=== PATIENT | female | born 1985 | race American Indian/Alaskan Native ===

== ENCOUNTER 2017-12-26 15:45 | Emergency (ER) | payer MEDICAID ==
[~2017-12-26] VITALS: Ht 162.6 cm; Wt 118.0 kg
[~2017-12-26 15:45] MED LIST: ALBU6.7H INH; AZIT250T PO; CLIN-79 PO; DIAZ2TAB PO; DIPH25CA83 PO; EFF25T PO; HYDR-565 PO; HYDR28CR14 TP; LORA-269 PO; PNV1TABL66 PO; RISP1TAB47 PO
[2017-12-26 15:58] VITALS: BP 126/64
== END 2017-12-26 17:18 | disposition home or self-care (01) ==
LOC: ER 15:45
DX: O98.812 Other maternal infectious and parasitic diseases complicating pregnancy, second trimester (principal); B37.3 Candidiasis of vulva and vagina; O26.892 Other specified pregnancy related conditions, second trimester; K21.9 Gastro-esophageal reflux disease without esophagitis; F32.9 Major depressive disorder, single episode, unspecified; F41.9 Anxiety disorder, unspecified; O99.512 Diseases of the respiratory system complicating pregnancy, second trimester; J45.909 Unspecified asthma, uncomplicated; O99.322 Drug use complicating pregnancy, second trimester; F12.10 Cannabis abuse, uncomplicated; O24.419 Gestational diabetes mellitus in pregnancy, unspecified control; Z3A.25 25 weeks gestation of pregnancy; Z79.899 Other long term (current) drug therapy; Z86.14 Personal history of Methicillin resistant Staphylococcus aureus infection
CPT/HCPCS: 99284

== ENCOUNTER 2018-01-03 02:02 | Emergency (ER) | payer MEDICAID ==
[~2018-01-03] VITALS: Ht 162.6 cm; Wt 121.0 kg
[2018-01-03 02:11] VITALS: BP 131/81
== END 2018-01-03 07:36 | disposition left against medical advice (07) ==
LOC: ER 02:03
DX: R00.0 Tachycardia, unspecified (principal); Z53.21 Procedure and treatment not carried out due to patient leaving prior to being seen by health care provider
CPT/HCPCS: 82948; 93005; 99281

== ENCOUNTER 2018-01-06 19:53 | Emergency (ER) | payer MEDICAID ==
[~2018-01-06] VITALS: Ht 188 cm; Wt 120.5 kg
[2018-01-06 20:26] VITALS: BP 109/71
== END 2018-01-06 20:49 | disposition home or self-care (01) ==
LOC: ER 19:54
DX: O99.342 Other mental disorders complicating pregnancy, second trimester (principal); O99.512 Diseases of the respiratory system complicating pregnancy, second trimester; F41.9 Anxiety disorder, unspecified; F32.9 Major depressive disorder, single episode, unspecified; J45.909 Unspecified asthma, uncomplicated; K21.9 Gastro-esophageal reflux disease without esophagitis; F12.10 Cannabis abuse, uncomplicated; Z3A.28 28 weeks gestation of pregnancy; Z79.899 Other long term (current) drug therapy
CPT/HCPCS: 82948; 93005; 99284

== ENCOUNTER 2018-07-02 13:01 | Emergency (ER) | payer MEDICAID ==
[~2018-07-02 13:01] MED LIST changes: -CLIN-79 PO; +CLIN150C8 PO; +PNV1TABL55 PO; -PNV1TABL66 PO
== END 2018-07-02 15:30 | disposition left against medical advice (07) ==
LOC: ER 13:02
DX: F41.9 Anxiety disorder, unspecified (principal); Z53.21 Procedure and treatment not carried out due to patient leaving prior to being seen by health care provider

== ENCOUNTER 2018-07-09 16:10 | Emergency (ER) | payer MEDICAID ==
[~2018-07-09] VITALS: Ht 165.1 cm; Wt 111.4 kg
[2018-07-09] MEDS ORDERED: LORazepam 1 MG tablet PO ONE (16:20)
[2018-07-09 17:21] VITALS: BP 112/67
== END 2018-07-09 17:23 | disposition home or self-care (01) ==
LOC: ER 16:10
DX: F41.0 Panic disorder [episodic paroxysmal anxiety] (principal); F41.9 Anxiety disorder, unspecified; J45.909 Unspecified asthma, uncomplicated; K21.9 Gastro-esophageal reflux disease without esophagitis; F32.9 Major depressive disorder, single episode, unspecified; F12.90 Cannabis use, unspecified, uncomplicated; Z86.73 Personal history of transient ischemic attack (TIA), and cerebral infarction without residual deficits; Z79.2 Long term (current) use of antibiotics; Z79.899 Other long term (current) drug therapy
CPT/HCPCS: 93005; 99284

== ENCOUNTER 2018-07-29 15:08 | Emergency (ER) | payer MEDICAID ==
[~2018-07-29] VITALS: Ht 162.6 cm; Wt 111.4 kg
[~2018-07-29 15:08] MED LIST changes: +HYDR-4353 PO; -HYDR-565 PO
[2018-07-29 15:10] VITALS: BP 128/72
[2018-07-29] MEDS ORDERED: mag hydrox/Alum hydrox/simeth 30ml oral suspension PO ONE (15:50)
[2018-07-29] MEDS ORDERED: LIDOcaine Viscous 15ml cup PO ONE (15:50)
[2018-07-29] MEDS ORDERED: dexamethasone sod phosphate 10mg/ml inj PO STA (16:44)
== END 2018-07-29 16:53 | disposition home or self-care (01) ==
LOC: ER 15:09
DX: J02.9 Acute pharyngitis, unspecified (principal); H92.01 Otalgia, right ear; R51 Headache; K21.9 Gastro-esophageal reflux disease without esophagitis; F41.9 Anxiety disorder, unspecified; F32.9 Major depressive disorder, single episode, unspecified; F12.10 Cannabis abuse, uncomplicated; F17.200 Nicotine dependence, unspecified, uncomplicated; J45.909 Unspecified asthma, uncomplicated; Z79.899 Other long term (current) drug therapy
CPT/HCPCS: 87081; 87880; 99284; J1100

== ENCOUNTER 2018-09-23 14:57 | Emergency (ER) | payer MEDICAID ==
[~2018-09-23] VITALS: Ht 162.6 cm; Wt 111.0 kg
[2018-09-23] MEDS ORDERED: diltiazem 5mg/ml 5ml inj. IV ONE (15:05)
[2018-09-23] MEDS ORDERED: normal saline 1000ml 1,000 ML IV ONE (15:05)
[2018-09-23] MEDS ORDERED: LORazepam 2 mg/ml vial IV ONE (15:05)
[2018-09-23 15:21] LABS: BASOPHILS # (AUTO) 0.1 X10'3 (0-0.2); BASOPHILS % (AUTO) 0.6 % (0-1); EOSINOPHILS # (AUTO) 0.3 X10'3 (0-0.9); EOSINOPHILS % (AUTO) 2.1 % (0-6); HEMATOCRIT 41.4 % (35.0-45.0); HEMOGLOBIN 13.2 g/dl (12.0-16.0); LYMPHOCYTES # (AUTO) 1.1 X10'3 (1.1-4.8); LYMPHOCYTES % (AUTO) 7.1 % (21-51); MEAN CORPUSCULAR HEMOGLOBIN 26.4 PG (27.0-31.0); MEAN CORPUSCULAR VOLUME 82.6 FL (78-98); MEAN PLATELET VOLUME 8.7 FL (7.4-10.4); MONOCYTES # (AUTO) 0.7 X10'3 (0-0.9); MONOCYTES % (AUTO) 4.5 % (2-12); NEUTROPHILS # (AUTO) 13.8 X10'3 (1.8-7.7); NEUTROPHILS % (AUTO) 85.7 % (42-75); PLATELET COUNT 225 X10'3 (140-440); RED BLOOD COUNT 5.01 X10'6 (4.20-5.60); RED CELL DISTRIBUTION WIDTH 16.1 % (11.5-14.5); WHITE BLOOD COUNT 16.1 X10'3 (4.5-11.0)
[2018-09-23 15:39] LABS: ALANINE AMINOTRANSFERASE 36 U/L (12-78); ALBUMIN 3.7 G/DL (3.4-5.0); ALBUMIN/GLOBULIN RATIO 0.9 (1.1-1.5); ALKALINE PHOSPHATASE 87 IU/L (46-116); ANION GAP 9 (8-16); ASPARTATE AMINO TRANSFERASE 19 U/L (10-37); BILIRUBIN,TOTAL 0.4 MG/DL (0.1-1.0); BLOOD UREA NITROGEN 15 MG/DL (7-18); BUN/CREATININE RATIO 15.3 (6.6-38.0); CALCIUM 8.9 MG/DL (8.5-10.1); CHLORIDE 105 MMOL/L (99-107); CREATININE 0.98 MG/DL (0.40-0.90); GLUCOSE 110 MG/DL (70-104); POTASSIUM 3.8 MMOL/L (3.5-5.1); SODIUM 140 MMOL/L (135-145); TOTAL CARBON DIOXIDE 25.8 MMOL/L (24-32); TOTAL PROTEIN 7.7 G/DL (6.4-8.2); eGFR 66 ML/MIN
[2018-09-23] MEDS ORDERED: labetalol 20mg/4ml (5mg/ml) syringe IV ONE (15:40)
[2018-09-23 15:41] LABS: URINE HCG NEGATIVE (NEG)
[2018-09-23 15:45] LABS: CLARITY,URINE CLEAR (Clear); COLOR,URINE YELLOW (Yellow); GLUCOSE, URINE NEGATIVE (Neg); KETONES,URINE NEGATIVE (Neg); LEUKOCYTE ESTERASE ,URINE NEGATIVE (Neg); NITRITES, URINE NEGATIVE (Neg); OCCULT BLOOD,URINE SMALL (Neg); PROTEIN,URINE NEGATIVE (Neg); UROBILINOGEN,URINE 0.2 E.U/dL (0.2-1.0)
[2018-09-23 15:47] LABS: MAGNESIUM 1.4 MG/DL (1.5-2.4)
[2018-09-23 15:47] LABS: UA COLLECTION TYPE CLN CATCH MIDSTREAM
[2018-09-23 15:56] LABS: BACTERIA,URINE FEW /HPF (Neg); RBC,URINE 0-2 /HPF (0-2); SQUAMOUS EPITHELIAL CELL,UR MANY /LPF (FEW); WBC,URINE 0-4 /HPF (0-4)
[2018-09-23 16:01] LABS: URINE AMPHETAMINE SCREEN NEGATIVE (Neg); URINE BARBITUATE SCREEN NEGATIVE (Neg); URINE BENZODIAZEPINES SCREEN NEGATIVE (Neg); URINE CANNABINOID SCREEN NEGATIVE (Neg); URINE COCAINE SCREEN NEGATIVE (Neg); URINE METHADONE SCREEN NEGATIVE (Neg); URINE OPIATE SCREEN NEGATIVE (Neg); URINE PHENCYCLIDINE SCREEN NEGATIVE (Neg)
[2018-09-23] MEDS ORDERED: propofol 1000mg/100ml bottle 100 ML IV PRN (16:08)
[2018-09-23 16:10] LABS: ETHANOL < 0.010 GM/DL (0.0-0.010)
[2018-09-23] MEDS ORDERED: ondansetron/PF 4mg/2ml inj IV ONE (17:00)
[2018-09-23 18:09] VITALS: BP 124/50
[2018-09-24] MEDS ORDERED: HYDR-4383 PO (19:26)
== END 2018-09-23 18:11 | disposition home or self-care (01) ==
LOC: EDBD 14:57 → ER 14:58
DX: I48.91 Unspecified atrial fibrillation (principal); E66.9 Obesity, unspecified; J45.909 Unspecified asthma, uncomplicated; K21.9 Gastro-esophageal reflux disease without esophagitis; F41.9 Anxiety disorder, unspecified; F32.9 Major depressive disorder, single episode, unspecified; R42 Dizziness and giddiness; F12.90 Cannabis use, unspecified, uncomplicated; Z79.899 Other long term (current) drug therapy
CPT/HCPCS: 36415; 71045; 80053; 80305; 80320; 81001; 81025; 83735; 84443; 84484; 85025; 92960; 93005; 96361; 96374; 96375; 99152; 99291; 99292; J2060; J2405; J2704; J7030; J3490

== ENCOUNTER 2018-10-31 23:05 | Emergency (ER) | payer MEDICAID ==
[~2018-10-31] VITALS: Ht 162.6 cm; Wt 122.0 kg
[~2018-10-31 23:05] MED LIST changes: +HYDR-4383 PO
[2018-10-31 23:17] VITALS: BP 126/83
[2018-10-31 23:49] LABS: URINE HCG NEGATIVE (NEG)
[2018-10-31 23:54] LABS: CLARITY,URINE CLEAR (Clear); COLOR,URINE RED (Yellow); GLUCOSE, URINE NEGATIVE (Neg); KETONES,URINE NEGATIVE (Neg); LEUKOCYTE ESTERASE ,URINE TRACE (Neg); NITRITES, URINE NEGATIVE (Neg); OCCULT BLOOD,URINE LARGE (Neg); PROTEIN,URINE 30 mg/dl (Neg); UA COLLECTION TYPE CLN CATCH MIDSTREAM; UROBILINOGEN,URINE 0.2 E.U/dL (0.2-1.0)
[2018-11-01 00:04] LABS: BASOPHILS # (AUTO) 0.1 X10'3 (0-0.2); BASOPHILS % (AUTO) 0.9 % (0-1); EOSINOPHILS # (AUTO) 0.3 X10'3 (0-0.9); EOSINOPHILS % (AUTO) 2.7 % (0-6); HEMATOCRIT 36.9 % (35.0-45.0); HEMOGLOBIN 12.1 g/dl (12.0-16.0); LYMPHOCYTES # (AUTO) 2.2 X10'3 (1.1-4.8); LYMPHOCYTES % (AUTO) 21.7 % (21-51); MEAN CORPUSCULAR HEMOGLOBIN 25.4 PG (27.0-31.0); MEAN CORPUSCULAR HGB CONC 32.8 % (33.0-36.5); MEAN CORPUSCULAR VOLUME 77.4 FL (78-98); MEAN PLATELET VOLUME 9.1 FL (7.4-10.4); MONOCYTES % (AUTO) 9.6 % (2-12); NEUTROPHILS # (AUTO) 6.5 X10'3 (1.8-7.7); NEUTROPHILS % (AUTO) 65.1 % (42-75); PLATELET COUNT 283 X10'3 (140-440); RED BLOOD COUNT 4.77 X10'6 (4.20-5.60); RED CELL DISTRIBUTION WIDTH 16.5 % (11.5-14.5)
[2018-11-01 00:04] LABS: SQUAMOUS EPITHELIAL CELL,UR FEW /LPF (FEW)
[2018-11-01 00:05] LABS: RBC,URINE TNTC /HPF (0-2); WBC,URINE 0-4 /HPF (0-4)
[2018-11-01 00:19] LABS: BACTERIA,URINE FEW /HPF (Neg)
[2018-11-01 00:22] LABS: ALANINE AMINOTRANSFERASE 37 U/L (12-78); ALBUMIN 3.7 G/DL (3.4-5.0); ALBUMIN/GLOBULIN RATIO 0.8 (1.1-1.5); ALKALINE PHOSPHATASE 103 IU/L (46-116); ANION GAP 8 (8-16); ASPARTATE AMINO TRANSFERASE 22 U/L (10-37); BILIRUBIN,TOTAL 0.2 MG/DL (0.1-1.0); BLOOD UREA NITROGEN 10 MG/DL (7-18); CALCIUM 8.5 MG/DL (8.5-10.1); CHLORIDE 102 MMOL/L (99-107); GLUCOSE 96 MG/DL (70-104); POTASSIUM 3.6 MMOL/L (3.5-5.1); SODIUM 137 MMOL/L (135-145); TOTAL CARBON DIOXIDE 27.1 MMOL/L (24-32); TOTAL PROTEIN 8.1 G/DL (6.4-8.2); eGFR 64 ML/MIN
[2018-11-01 00:42] LABS: INR 0.9 INR; PROTHROMBIN TIME 9.6 SECONDS (9.0-12.0)
--- NOTE | 2018-11-01 00:48 | NUR ---
DR MADERA AT BEDSIDE WITH PT
== END 2018-11-01 01:07 | disposition home or self-care (01) ==
LOC: ER 23:06
DX: N93.9 Abnormal uterine and vaginal bleeding, unspecified (principal); R10.9 Unspecified abdominal pain; R53.1 Weakness; R42 Dizziness and giddiness; J45.909 Unspecified asthma, uncomplicated; K21.9 Gastro-esophageal reflux disease without esophagitis; F17.200 Nicotine dependence, unspecified, uncomplicated; F12.90 Cannabis use, unspecified, uncomplicated
CPT/HCPCS: 36415; 80053; 81001; 81025; 85025; 85610; 87088; 99283

== ENCOUNTER 2018-12-17 12:45 | Emergency (ER) | payer MEDICAID ==
[~2018-12-17] VITALS: Ht 162.6 cm; Wt 126.0 kg
[2018-12-17 13:03] VITALS: BP 127/74
--- NOTE | 2018-12-17 13:17 | NUR ---
multiple complaints, c/o deep cough prod green sputum, vaginal discharged-mucus, nausea, eye sensitivity
[2018-12-17] MEDS ORDERED: ibuprofen tablet 400 MG TABLET PO ONE (13:35)
[2018-12-17] MEDS ORDERED: ondansetron 4mg rapidly disintigrating tab PO ONE (13:35)
[2018-12-17 14:04] LABS: CLARITY,URINE CLOUDY (Clear); COLOR,URINE YELLOW (Yellow); GLUCOSE, URINE NEGATIVE (Neg); KETONES,URINE NEGATIVE (Neg); LEUKOCYTE ESTERASE ,URINE SMALL (Neg); NITRITES, URINE NEGATIVE (Neg); OCCULT BLOOD,URINE SMALL (Neg); PROTEIN,URINE NEGATIVE (Neg); URINE HCG NEGATIVE (NEG); UROBILINOGEN,URINE 0.2 E.U/dL (0.2-1.0)
[2018-12-17 14:08] LABS: UA COLLECTION TYPE CLN CATCH MIDSTREAM
[2018-12-17] MEDS ORDERED: METR-159 PO (14:08)
[2018-12-17 14:13] LABS: MUCUS STRANDS FEW /LPF (Neg); SQUAMOUS EPITHELIAL CELL,UR MANY /LPF (FEW)
[2018-12-17 14:14] LABS: BACTERIA,URINE 1+ /HPF (Neg); WBC CLUMPS,URINE MODERATE /HPF (NEGATIVE)
[2018-12-17] MEDS ORDERED: NITR100C6 PO (14:21)
== END 2018-12-17 14:31 | disposition home or self-care (01) ==
LOC: ER 12:46
DX: N76.0 Acute vaginitis (principal); N39.0 Urinary tract infection, site not specified; R05 Cough; R19.4 Change in bowel habit; K21.9 Gastro-esophageal reflux disease without esophagitis; J45.909 Unspecified asthma, uncomplicated; F12.90 Cannabis use, unspecified, uncomplicated; Z79.899 Other long term (current) drug therapy; Z79.2 Long term (current) use of antibiotics; Z86.14 Personal history of Methicillin resistant Staphylococcus aureus infection
CPT/HCPCS: 81001; 81025; 99283

== ENCOUNTER 2019-01-18 09:49 | Emergency (ER) | payer MEDICAID ==
[~2019-01-18] VITALS: Ht 162.6 cm; Wt 113.0 kg
[~2019-01-18 09:49] MED LIST changes: +NITR100C6 PO
[2019-01-18 10:51] LABS: CLARITY,URINE SLIGHTLY CLOUDY (Clear); COLOR,URINE YELLOW (Yellow); GLUCOSE, URINE NEGATIVE (Neg); KETONES,URINE NEGATIVE (Neg); LEUKOCYTE ESTERASE ,URINE NEGATIVE (Neg); NITRITES, URINE NEGATIVE (Neg); OCCULT BLOOD,URINE MODERATE (Neg); PROTEIN,URINE NEGATIVE (Neg); UROBILINOGEN,URINE 0.2 E.U/dL (0.2-1.0)
[2019-01-18 10:54] LABS: UA COLLECTION TYPE CLN CATCH MIDSTREAM
[2019-01-18 10:54] LABS: ALANINE AMINOTRANSFERASE 32 U/L (12-78); ALBUMIN 3.4 G/DL (3.4-5.0); ALBUMIN/GLOBULIN RATIO 0.9 (1.1-1.5); ALKALINE PHOSPHATASE 92 IU/L (46-116); ANION GAP 7 (8-16); ASPARTATE AMINO TRANSFERASE 18 U/L (10-37); BILIRUBIN,TOTAL 0.2 MG/DL (0.1-1.0); BLOOD UREA NITROGEN 10 MG/DL (7-18); CALCIUM 8.7 MG/DL (8.5-10.1); CHLORIDE 105 MMOL/L (99-107); GLUCOSE 97 MG/DL (70-104); POTASSIUM 3.8 MMOL/L (3.5-5.1); SODIUM 140 MMOL/L (135-145); TOTAL CARBON DIOXIDE 28.5 MMOL/L (24-32); TOTAL PROTEIN 7.3 G/DL (6.4-8.2); eGFR 64 ML/MIN
[2019-01-18 10:57] LABS: BASOPHILS # (AUTO) 0.1 X10'3 (0-0.2); BASOPHILS % (AUTO) 0.8 % (0-1); EOSINOPHILS # (AUTO) 0.2 X10'3 (0-0.9); HEMATOCRIT 38.6 % (35.0-45.0); HEMOGLOBIN 12.2 g/dl (12.0-16.0); LYMPHOCYTES # (AUTO) 1.4 X10'3 (1.1-4.8); LYMPHOCYTES % (AUTO) 20.2 % (21-51); MEAN CORPUSCULAR HEMOGLOBIN 24.8 PG (27.0-31.0); MEAN CORPUSCULAR HGB CONC 31.5 g/dL (33.0-36.5); MEAN CORPUSCULAR VOLUME 78.7 FL (78-98); MEAN PLATELET VOLUME 8.7 FL (7.4-10.4); MONOCYTES # (AUTO) 0.8 X10'3 (0-0.9); MONOCYTES % (AUTO) 11.8 % (2-12); NEUTROPHILS # (AUTO) 4.5 X10'3 (1.8-7.7); NEUTROPHILS % (AUTO) 64.2 % (42-75); PLATELET COUNT 208 X10'3 (140-440); RED CELL DISTRIBUTION WIDTH 17.6 % (11.5-14.5); WHITE BLOOD COUNT 7.1 X10'3 (4.5-11.0)
[2019-01-18 10:58] LABS: URINE HCG NEGATIVE (NEG)
[2019-01-18 10:59] LABS: BACTERIA,URINE 1+ /HPF (Neg); MUCUS STRANDS FEW /LPF (Neg); SQUAMOUS EPITHELIAL CELL,UR MODERATE /LPF (FEW); WBC,URINE 30-50 /HPF (0-4)
[2019-01-18] MEDS ORDERED: CefTRIAXone 250MG IM Kit w/LIDOcaine IM ONE (11:10)
[2019-01-18] MEDS ORDERED: BACDS PO (11:12)
[2019-01-18 11:36] VITALS: BP 132/79
== END 2019-01-18 11:39 | disposition home or self-care (01) ==
LOC: ER 09:50
DX: I47.1 Supraventricular tachycardia (principal); N39.0 Urinary tract infection, site not specified; J45.909 Unspecified asthma, uncomplicated; K21.9 Gastro-esophageal reflux disease without esophagitis; E66.01 Morbid (severe) obesity due to excess calories
CPT/HCPCS: 36415; 80053; 81001; 81025; 85025; 87088; 93005; 96372; 99284; J0696

== ENCOUNTER 2019-02-02 16:43 | Emergency (ER) | payer MEDICAID ==
[~2019-02-02] VITALS: Ht 162.6 cm; Wt 113.6 kg
[2019-02-02 16:45] VITALS: BP 137/91
[2019-02-02] MEDS ORDERED: LIDOcaine 1% w/epiNEPHrine 1:200,000 30ml vial IM ONE (17:15)
[2019-02-02] MEDS ORDERED: TETanus/Pertussis (Acell)/Diphther VAC/PF (Tdap-Adult) 0.5ml syringe IM ONE (17:15)
== END 2019-02-02 17:50 | disposition home or self-care (01) ==
LOC: ER 16:44
DX: S71.111A Laceration without foreign body, right thigh, initial encounter (principal); F12.90 Cannabis use, unspecified, uncomplicated; Z79.899 Other long term (current) drug therapy; W26.0XXA Contact with knife, initial encounter; Y93.89 Activity, other specified; Y92.89 Other specified places as the place of occurrence of the external cause; Y99.8 Other external cause status
CPT/HCPCS: 12001; 90471; 90715; 99283; J3490

== ENCOUNTER 2019-04-04 21:06 | Emergency (ER) | payer MEDICAID ==
[~2019-04-04] VITALS: Ht 165.1 cm; Wt 118.2 kg
[2019-04-04] MEDS ORDERED: sulfamethoxazole/trimethoprim DS (800/160mg) tablet PO ONE (22:35)
[2019-04-04] MEDS ORDERED: cephalexin 250mg capsule PO ONE (22:35)
[2019-04-04] MEDS ORDERED: CEPH-572 PO (22:38)
[2019-04-04] MEDS ORDERED: SULF1TAB49 PO (22:38)
[2019-04-04 23:02] VITALS: BP 132/65
== END 2019-04-04 22:52 | disposition home or self-care (01) ==
LOC: ER 21:14
DX: N61.1 Abscess of the breast and nipple (principal); J45.909 Unspecified asthma, uncomplicated; K21.9 Gastro-esophageal reflux disease without esophagitis; Z86.14 Personal history of Methicillin resistant Staphylococcus aureus infection; F12.90 Cannabis use, unspecified, uncomplicated; Z79.899 Other long term (current) drug therapy
CPT/HCPCS: 99283

== ENCOUNTER 2019-04-22 19:29 | Emergency (ER) | payer MEDICAID ==
[~2019-04-22] VITALS: Ht 162.6 cm; Wt 130.0 kg
[2019-04-22] MEDS ORDERED: azithromycin 250mg tablet PO ONE (20:15)
[2019-04-22] MEDS ORDERED: CefTRIAXone 250MG IM Kit w/LIDOcaine IM ONE (20:15)
[2019-04-22] MEDS ORDERED: HYDROcodone/acetaminophen 5mg/325mg tablet PO ONE (20:15)
[2019-04-22 20:41] VITALS: BP 136/71
== END 2019-04-22 20:43 | disposition home or self-care (01) ==
LOC: ER 19:29
DX: R22.0 Localized swelling, mass and lump, head (principal); R51 Headache; J45.909 Unspecified asthma, uncomplicated; K21.9 Gastro-esophageal reflux disease without esophagitis; F41.9 Anxiety disorder, unspecified; F32.9 Major depressive disorder, single episode, unspecified; F12.90 Cannabis use, unspecified, uncomplicated; F10.99 Alcohol use, unspecified with unspecified alcohol-induced disorder; Z86.14 Personal history of Methicillin resistant Staphylococcus aureus infection; Z79.899 Other long term (current) drug therapy; Y90.9 Presence of alcohol in blood, level not specified
CPT/HCPCS: 96372; 99283; J0696

== ENCOUNTER 2019-08-05 15:35 | Emergency (ER) | payer MEDICAID ==
[~2019-08-05] VITALS: Ht 162.6 cm; Wt 118.2 kg
[~2019-08-05 15:35] MED LIST changes: -ALBU6.7H INH; +ALBU6.7H9 INH
[2019-08-05 15:39] VITALS: BP 133/77
[2019-08-05] MEDS ORDERED: ALBU6.7H9 INH (15:59)
[2019-08-05] MEDS ORDERED: PRED20TA PO (15:59)
[2019-08-05] MEDS ORDERED: ipratropium/albuterol 3ml nebule NEB ONE (16:00)
[2019-08-05] MEDS ORDERED: predniSONE 20 mg tablet PO ONE (16:00)
== END 2019-08-05 16:45 | disposition home or self-care (01) ==
LOC: ER 15:36
DX: J45.901 Unspecified asthma with (acute) exacerbation (principal); K21.9 Gastro-esophageal reflux disease without esophagitis; F41.9 Anxiety disorder, unspecified; F32.9 Major depressive disorder, single episode, unspecified; F12.90 Cannabis use, unspecified, uncomplicated; F10.99 Alcohol use, unspecified with unspecified alcohol-induced disorder; Z79.899 Other long term (current) drug therapy; Y90.9 Presence of alcohol in blood, level not specified
CPT/HCPCS: 94640; 94760; 99283; J7512